=== PATIENT | female | born 2000 | race Caucasian/White ===

== ENCOUNTER 2022-03-21 18:13 | Emergency (ER) | payer SELFPAY ==
--- OUTSIDE RECORDS SUMMARY | 2022-03-21 18:15 | XMS REPORT | Continuity of Care Document ---
:2000 Author Organization [facility] t Address [address] [place] [address] Care Team Providers Name Role Phone IRVING Attending Clinician Unavailable IRVING Admitting Clinician Unavailable Payers Payer Name Policy Type Policy Number Effective Date Expiration Date [facility] [id number] 2018 COMMUNITY PLAN OF 00:00:00 [place] (MED[place] [id number] (MEDICAID) Problems This patient has no known problems. Allergies, Adverse Reactions, Alerts This patient has no known allergies or adverse reactions. Medications This patient has no known medications. Procedures This patient has no known procedures. Encounters Start End Encounter Admission Attending Care Care Encounter Source Date/Time Date/Time Type Type Clinicians Facility Department ID 2021-12-08 2021-12-08 Outpatient [facility] [id number] [place] 03:56:00 03:56:00 _SHERIN da [facility] Program Results This patient has no known results.
[2022-03-21] MEDS ORDERED: NA CHLORIDE 0.9% 1,000 ML ONE (19:17)
[2022-03-21 19:30] LABS: Urine Blood Negative (Negative); Urine Glucose Negative (Negative); Urine Protein Negative (Negative); Urine Specific Gravity 1.025 (1.005-1.030)
[2022-03-21 19:31] LABS: Absolute Lymphocytes (CBC) 2.5 K/uL (0.7-4.9); Hematocrit 39.4 % (36.0-45.0); Lymphocytes % 26.7 % (15.3-44.8); MCV 90.3 fL (80-100); MPV 8.8 fL (7.6-11.3); RBC Red Blood Cell Count 4.36 M/uL (3.86-4.86)
[2022-03-21 19:50] LABS: BUN Blood Urea Nitrogen 8 mg/dL (7-18); Bicarbonate 29 mmol/L (21-32); Glomerular Filtration Rate 107 ml/min (=/>90); Glucose Level 84 mg/dL (74-106); Potassium 3.7 mmol/L (3.5-5.1); Sodium Level 140 mmol/L (136-145)
[2022-03-21 19:51] LABS: Troponin High Sensitivity < 3.0 pg/mL (<58.9)
[2022-03-22 02:59] VITALS: TEMP 98.2
[2022-03-22 03:03] VITALS: BP 103/72; O2SAT 100
--- NOTE | 2022-03-22 07:21 | EKG ---
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
[2022-03-22 09:10] LABS: Urine Specific Gravity/Preg 1.025 (1.005-1.030)
--- NOTE | 2022-03-22 10:29 | ER ---
Nurse's Notes [facility] Name: Lin Everett Age: 21 yrs Sex: Female : 2000 Arrival Date: 03/21/2022 Time: 18:14 Bed 8 Private MD: Diagnosis: Benign paroxysmal vertigo Presentation: 03/21 18:38 Chief complaint: Patient states: dizziness, low BP for the past few weeks. Coronavirus eh3 screen: Vaccine status: Patient reports being unvaccinated. Ebola Screen: No symptoms or risks identified at this time. Initial Sepsis Screen: Does the patient meet any 2 criteria? No. Patient's initial sepsis screen is negative. Does the patient have a suspected source of infection? No. Patient's initial sepsis screen is negative. Risk Assessment: Do you want to hurt yourself or someone else? Patient reports no desire to harm self or others. Onset of symptoms was March 21, 2022. 18:38 Method Of Arrival: Ambulatory 3 18:38 Acuity: ARTURO 3 eh3 Triage Assessment: 18:38 General: Appears in no apparent distress. comfortable, Behavior is calm, cooperative, eh3 appropriate for age. Pain: Denies pain. Neuro: Level of Consciousness is awake, alert, obeys commands, Oriented to person, place, time, situation. Cardiovascular: Capillary refill < 3 seconds Patient's skin is warm and dry. Respiratory: Airway is patent Respiratory effort is even, unlabored. 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 - Social history:: Smoking status: Patient reports the use of cigarette tobacco products, smokes one-half pack cigarettes per day, Patient uses alcohol, occasionally. street drugs, marijuana. Screenin:55 Abuse screen: Denies threats or abuse. Nutritional screening: No deficits noted. tw2 Tuberculosis screening: No symptoms or risk factors identified. Fall Risk None identified. Assessment: 18:57 Reassessment: provider at bedside at this time. tw2 19:21 General: Appears uncomfortable, Behavior is calm, cooperative. Pain: Complains of pain ll3 in chest Quality of pain is described as pressure. Neuro: Level of Consciousness is awake, alert, obeys commands, Oriented to person, place, time, situation, Reports dizziness. Cardiovascular: Reports Chest pressure Patient's skin is warm and dry. Respiratory: Respiratory effort is even, unlabored, Respiratory pattern is regular, symmetrical. 20:28 Reassessment: No changes from previously documented assessment. Patient and/or family ll3 updated on plan of care and expected duration. Pain level reassessed. Patient is alert, oriented x 3, equal unlabored respirations, skin warm/dry/pink. Vital Signs: 18:38 BP 131 / 91 RA Sitting (auto/reg); Pulse 80; Resp 18; Temp 98.2; Pulse Ox 96% on R/A; eh3 Weight 49.44 kg; Height 4 ft. 9 in. (144.78 cm); Pain 0/10; 20:28 BP 103 / 72; Pulse 56; Resp 17; Pulse Ox 100% on R/A; ll3 18:38 Body Mass Index 23.59 (49.44 kg, 144.78 cm) eh3 ED Course: 18:14 Patient arrived in ED. mr 18:23 [facility] jl9 18:23 Marcelo Salas MD is Attending Physician. jl9 18:41 Triage completed. eh3 18:42 Arm band placed on left wrist. eh3 18:45 Bed in low position. Call light in reach. tw2 18:56 Michel Gunn, RN is Primary Nurse. bp 19:18 EKG done, by ED staff. wm 19:19 Initial lab(s) drawn, by hi, sent to lab. ll3 19:19 Inserted saline lock: 22 gauge in right antecubital area, using aseptic technique. ll3 Blood collected. 19:22 Primary Nurse role handed off by Michel Gunn RN mw2 19:30 Sinan Fulton, CASSANDRA is Primary Nurse. ll3 20:24 Attending Physician role handed off by Marcelo Salas MD rn 20:24 Chavez Carter MD is Attending Physician. rn 20:45 No provider procedures requiring assistance completed. IV discontinued, intact, ll3 bleeding controlled, No redness/swelling at site. Pressure dressing applied. Administered Medications: 19:25 Drug: NS 0.9% 1000 ml Route: IV; Rate: 1000 ml; Site: right antecubital; ll3 20:28 Follow up: Response: No adverse reaction; IV Status: Completed infusion; IV Intake: ll3 1000ml Medication: 18:55 VIS not applicable for this client. tw2 Intake: 20:28 IV: 1000ml; Total: 1000ml. ll3 Outcome: 20:34 Discharge ordered by . [email or web address] 20:45 Discharged to home ambulatory, with significant other. ll3 20:45 Condition: stable 20:45 Discharge instructions given to patient, Instructed on discharge instructions, follow up and referral plans. medication usage, Demonstrated understanding of instructions, follow-up care, medications, Prescriptions given X 1. 20:46 Patient left the ED. ll3 Signatures: Kristan Sow Roman, MD MD rn Wise, Tara RN RN tw2 Michel Gunn, RN RN Narinder Clark 2 Vale Birmingham Lynsea, RN RN 3 Maci Zepeda John [facility]
--- NOTE | 2022-03-22 10:30 | EDPHYS ---
Physician Documentation [facility] Name: Lin Everett Age: 21 yrs Sex: Female : 2000 Arrival Date: 03/21/2022 Time: 18:14 Bed 8 Private MD: ED Physician Chavez Carter HPI: 03/21 20:31 This 21 yrs old Female presents to ER via Ambulatory with complaints of intermittent jl9 dizziness x1 month, history of vertigo. Denies any current symptoms. . 20:31 Onset: The symptoms/episode began/occurred 1 month(s) ago. Associated signs and jl9 symptoms: Pertinent negatives: headache, seizure. 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 - Social history:: Smoking status: Patient reports the use of cigarette tobacco products, smokes one-half pack cigarettes per day, Patient uses alcohol, occasionally. street drugs, marijuana. ROS: 20:32 Constitutional: Negative for fever, chills, and weight loss. jl9 20:32 Eyes: Negative for injury, pain, redness, and discharge, ENT: Negative for injury, pain, and discharge, Neck: Negative for injury, pain, and swelling, Cardiovascular: Negative for chest pain, palpitations, and edema, Respiratory: Negative for shortness of breath, cough, wheezing, and pleuritic chest pain, Abdomen/GI: Negative for abdominal pain, nausea, vomiting, diarrhea, and constipation, Back: Negative for injury and pain, MS/Extremity: Negative for injury and deformity, Skin: Negative for injury, rash, and discoloration. 20:32 Psych: Negative for depression, anxiety, suicide ideation, homicidal ideation, and hallucinations, Allergy/Immunology: Negative for hives, rash, and allergies, Endocrine: Negative for neck swelling, polydipsia, polyuria, polyphagia, and marked weight changes, Hematologic/Lymphatic: Negative for swollen nodes, abnormal bleeding, and unusual bruising. 20:32 Neuro: Positive for dizziness. Exam: 20:33 Constitutional: This is a well developed, well nourished patient who is awake, alert, jl9 and in no acute distress. Head/Face: Normocephalic, atraumatic. Eyes: Pupils equal round and reactive to light, extra-ocular motions intact. Lids and lashes normal. Conjunctiva and sclera are non-icteric and not injected. Cornea within normal limits. Periorbital areas with no swelling, redness, or edema. ENT: Mucous membranes moist. Neck: Trachea midline, no thyromegaly or masses palpated, and no cervical lymphadenopathy. Supple, full range of motion without nuchal rigidity, or vertebral point tenderness. No Meningismus. Chest/axilla: Normal chest wall appearance and motion. Nontender with no deformity. No lesions are appreciated. Cardiovascular: Regular rate and rhythm with a normal S1 and S2. No gallops, murmurs, or rubs. Normal PMI, no JVD. No pulse deficits. Respiratory: Lungs have equal breath sounds bilaterally, clear to auscultation and percussion. No rales, rhonchi or wheezes noted. No increased work of breathing, no retractions or nasal flaring. Abdomen/GI: Soft, non-tender, with normal bowel sounds. No distension or tympany. No guarding or rebound. No evidence of tenderness throughout. Back: No spinal tenderness. No costovertebral tenderness. Full range of motion. Skin: Warm, dry with normal turgor. Normal color with no rashes, no lesions, and no evidence of cellulitis. MS/ Extremity: Pulses equal, no cyanosis. Neurovascular intact. Full, normal range of motion. Neuro: Awake and alert, GCS 15, oriented to person, place, time, and situation. Cranial nerves II-XII grossly intact. Motor strength 5/5 in all extremities. Sensory grossly intact. Cerebellar exam normal. Normal gait. Psych: Awake, alert, with orientation to person, place and time. Behavior, mood, and affect are within normal limits. Vital Signs: 18:38 BP 131 / 91 RA Sitting (auto/reg); Pulse 80; Resp 18; Temp 98.2; Pulse Ox 96% on R/A; eh3 Weight 49.44 kg; Height 4 ft. 9 in. (144.78 cm); Pain 0/10; 20:28 BP 103 / 72; Pulse 56; Resp 17; Pulse Ox 100% on R/A; ll3 18:38 Body Mass Index 23.59 (49.44 kg, 144.78 cm) eh3 MDM: 18:52 Patient medically screened. 9 20:35 Data reviewed: vital signs, nurses notes. [facility] 03/21 19:28 Order name: Basic Metabolic Panel; Complete Time: 20:30 EDMS 03/21 19:28 Order name: Troponin High Sensitivity; Complete Time: 20:30 EDMS 03/21 19:28 Order name: CBC with Automated Diff; Complete Time: 20:30 EDMS 03/21 19:03 Order name: EKG; Complete Time: 08:33 [facility] 03/21 19:03 Order name: EKG - Nurse/Tech; Complete Time: 19:18 [facility] 03/21 19:03 Order name: IV Saline Lock; Complete Time: 19:21 [facility] 03/21 19:03 Order name: Labs collected and sent; Complete Time: 19:21 [facility] 03/21 19:03 Order name: Urine Dipstick-Ancillary (obtain specimen); Complete Time: 19:30 [facility] 03/21 19:30 Order name: Urine --Ancillary (enter results) [facility] 03/21 19:30 Order name: Urine Dipstick-Ancillary; Complete Time: 20:30 EDMS 03/21 19:03 Order name: Urine Test (obtain specimen); Complete Time: 19:30 jl9 Administered Medications: 19:25 Drug: NS 0.9% 1000 ml Route: IV; Rate: 1000 ml; Site: right antecubital; ll3 20:28 Follow up: Response: No adverse reaction; IV Status: Completed infusion; IV Intake: ll3 1000ml Disposition: 22:52 Co-signature as Attending Physician, Chavez Carter MD. rn Disposition Summary: 03/21/22 20:34 Discharge Ordered Location: Home jl9 Condition: Stable jl9 Diagnosis - Benign paroxysmal vertigo jl9 Followup: jl9 - With: Private Physician - When: 1 - 2 days - Reason: Recheck today's complaints, Continuance of care, Re-evaluation by your physician Discharge Instructions: - Discharge Summary Sheet jl9 - Vertigo, [id number] jl9 Forms: - Medication Reconciliation Form jl9 - Thank You Letter jl9 - Antibiotic Education jl9 - Prescription Opioid Use jl9 Prescriptions: - Meclizine 25 mg Oral Tablet - take 1 tablet by ORAL route every 8 hours As needed; 30 tablet; Refills: 0, jl9 Product Selection Permitted Signatures: Dispatcher [employer] Chavez Graham MD MD rn Loubet, CASSANDRA Menon RN ll3 Zepeda, Maci 3 Oswald Beckwith jl9
== END 2022-03-21 20:46 | disposition home or self-care (01) ==
LOC: ER 18:13
DX: H81.10 Benign paroxysmal vertigo, unspecified ear (principal); F17.210 Nicotine dependence, cigarettes, uncomplicated; Z88.8 Allergy status to other drugs, medicaments and biological substances
CPT/HCPCS: 36415; 80048; 81003; 81025; 84484; 85025; 93005; 96360; 99284; J7030

== ENCOUNTER 2022-07-07 13:13 | Emergency (ER) | payer SELFPAY ==
--- OUTSIDE RECORDS SUMMARY | 2022-07-07 13:16 | XMS REPORT | Continuity of Care Document ---
:2000 Author Organization [facility] t Address [address] [place] [address] Care Team Providers Name Role Phone IRVING Attending Clinician Unavailable IRVING Admitting Clinician Unavailable Payers Payer Name Policy Type Policy Number Effective Date Expiration Date [facility] [id number] 2018 COMMUNITY PLAN OF 00:00:00 [place] [id number] [place]MEDICA[place] Problems This patient has no known problems. Allergies, Adverse Reactions, Alerts This patient has no known allergies or adverse reactions. Medications This patient has no known medications. Procedures This patient has no known procedures. Encounters Start End Encounter Admission Attending Care Care Encounter Source Date/Time Date/Time Type Type Clinicians Facility Department ID 2021-12-08 2021-12-08 Outpatient CATHY [facility] [phone] [place] 03:56:00 03:56:00 _SHERIN da [facility] h Program Results This patient has no known results.
[2022-07-07 14:56] LABS: SARS-COV-2 RT PCR NEGATIVE (NEGATIVE)
--- NOTE | 2022-07-07 15:29 | EDPHYS ---
Physician Documentation [facility] Name: Lin Everett Age: 21 yrs Sex: Female : 2000 Arrival Date: 07/07/2022 Time: 13:14 Bed DIS2 Private MD: ED Physician Marcelo Salas HPI: 07/07 15:25 This 21 yrs old Female presents to ER via Ambulatory with complaints of jl9 Cough, Chest Congestion, Sore Throat. 15:25 The patient or guardian reports flu symptoms. Onset: The symptoms/episode jl9 began/occurred 1 week(s) ago. Modifying factors: The symptoms are alleviated by nothing, the symptoms are aggravated by nothing. 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 - Social history:: Smoking status: Patient reports the use of cigarette tobacco products, smokes one-half pack cigarettes per day, Patient uses street drugs, marijuana. ROS: 15:26 Constitutional: Negative for fever, chills, and weight loss, Eyes: Negative for injury, jl9 pain, redness, and discharge. 15:26 Neck: Negative for injury, pain, and swelling, Cardiovascular: Negative for chest pain, palpitations, and edema. 15:26 Abdomen/GI: Negative for abdominal pain, nausea, vomiting, diarrhea, and constipation, Back: Negative for injury and pain, : Negative for injury, bleeding, discharge, and swelling, MS/Extremity: Negative for injury and deformity, Skin: Negative for injury, rash, and discoloration, Neuro: Negative for headache, weakness, numbness, tingling, and seizure, Psych: Negative for depression, anxiety, suicide ideation, homicidal ideation, and hallucinations, Allergy/Immunology: Negative for hives, rash, and allergies, Endocrine: Negative for neck swelling, polydipsia, polyuria, polyphagia, and marked weight changes, Hematologic/Lymphatic: Negative for swollen nodes, abnormal bleeding, and unusual bruising. 15:26 ENT: Positive for sore throat. 15:26 Respiratory: Positive for cough. Exam: 15:28 Constitutional: This is a well developed, well nourished patient who is awake, alert, jl9 and in no acute distress. Head/Face: Normocephalic, atraumatic. Eyes: Pupils equal round and reactive to light, extra-ocular motions intact. Lids and lashes normal. Conjunctiva and sclera are non-icteric and not injected. Cornea within normal limits. Periorbital areas with no swelling, redness, or edema. ENT: Mucous membranes moist. Neck: Trachea midline, no thyromegaly or masses palpated, and no cervical lymphadenopathy. Supple, full range of motion without nuchal rigidity, or vertebral point tenderness. No Meningismus. Chest/axilla: Normal chest wall appearance and motion. Nontender with no deformity. No lesions are appreciated. Cardiovascular: Regular rate and rhythm with a normal S1 and S2. No gallops, murmurs, or rubs. Normal PMI, no JVD. No pulse deficits. 15:28 Abdomen/GI: Soft, non-tender, with normal bowel sounds. No distension or tympany. No guarding or rebound. No evidence of tenderness throughout. Back: No spinal tenderness. No costovertebral tenderness. Full range of motion. Skin: Warm, dry with normal turgor. Normal color with no rashes, no lesions, and no evidence of cellulitis. MS/ Extremity: Pulses equal, no cyanosis. Neurovascular intact. Full, normal range of motion. Neuro: Awake and alert, GCS 15, oriented to person, place, time, and situation. Cranial nerves II-XII grossly intact. Motor strength 5/5 in all extremities. Sensory grossly intact. Cerebellar exam normal. Normal gait. Psych: Awake, alert, with orientation to person, place and time. Behavior, mood, and affect are within normal limits. 15:28 Respiratory: the patient does not display signs of respiratory distress, Respirations: normal, Breath sounds: + upper airway congestion. Vital Signs: 14:01 BP 114 / 82; Pulse 68; Resp 16; Temp 98.4; Pulse Ox 100% ; Weight 48.53 kg; Height 4 vg1 ft. 11 in. (149.86 cm); Pain 5/10; 14:01 Body Mass Index 21.61 (48.53 kg, 149.86 cm) vg1 MDM: 14:10 Patient medically screened. [facility] 15:29 Differential Diagnosis: Obstructed Airway Bronchitis Upper Respiratory Infection. Data jl9 reviewed: vital signs, nurses notes. Counseling: I had a detailed discussion with the patient and/or guardian regarding: the historical points, exam findings, and any diagnostic results supporting the discharge/admit diagnosis, lab results, the need for outpatient follow up, to return to the emergency department if symptoms worsen or persist or if there are any questions or concerns that arise at home. 07/07 13:15 Order name: COVID-19/FLU A+B/RSV; Complete Time: 15:06 jl9 07/07 14:00 Order name: Strep; Complete Time: 15:06 vg1 07/07 15:08 Order name: Throat Culture EDMS Administered Medications: No medications were administered Disposition Summary: 07/07/22 15:29 Discharge Ordered Location: Home jl9 Condition: Stable jl9 Diagnosis - Acute upper respiratory infection, unspecified jl9 Followup: jl9 - With: Private Physician - When: 1 - 2 days - Reason: Recheck today's complaints, Continuance of care, Re-evaluation by your physician Discharge Instructions: - Discharge Summary Sheet jl9 - Upper Respiratory Infection, Adult jl9 - Acute Bronchitis, Adult, [id number] jl9 Forms: - Medication Reconciliation Form jl9 - Thank You Letter jl9 - Antibiotic Education jl9 - Prescription Opioid Use jl9 - Work release form ap3 Prescriptions: - albuterol sulfate 90 mcg/actuation Inhalation HFA aerosol inhaler - inhale 2 puff by INHALATION route every 6 hours As needed; 18 gram; Refills: 0, jl9 Product Selection Permitted - azithromycin 250 mg Oral tablet - take 2 tablet by ORAL route once daily for 1 day then 1 tablet (250 mg) by oral jl9 route once daily for 4 days; 6 tablet; Refills: 0, Product Selection Permitted - Medrol (Elías) 4 mg Oral Tablets, Dose Pack - take 1 tablet by ORAL route as directed - follow package instructions; 1 jl9 packet; Refills: 0, Product Selection Permitted - Guaifenesin AC 10-100 mg/5 mL Oral Liquid - take 10 milliliters by ORAL route every 4 hours As needed; 240 milliliter; jl9 Refills: 0, Product Selection Permitted Addendum: 07/09/2022 13:35 Co-signature as Attending Physician, Marcelo Josue MD I agree with the assessment and c gentile plan of care. Signatures: Dispatcher [employer] Marcelo Lock MD MD cha Garcia, Victoria, RN RN 1 Oswald Beckwith jl9
--- NOTE | 2022-07-07 15:29 | ER ---
Nurse's Notes [facility] Name: Lin Everett Age: 21 yrs Sex: Female : 2000 Arrival Date: 07/07/2022 Time: 13:14 Bed DIS2 Private MD: Diagnosis: Acute upper respiratory infection, unspecified Presentation: 07/07 14:01 Chief complaint: Patient states: cough, congestion, sore throat x 1 week. Coronavirus vg1 screen: Vaccine status: Patient reports being unvaccinated. Client denies travel out of the [place] in the last 14 days. Ebola Screen: Patient negative for fever greater than or equal to 101.5 degrees Fahrenheit, and additional compatible Ebola Virus Disease symptoms. Initial Sepsis Screen: Does the patient meet any 2 criteria? No. Patient's initial sepsis screen is negative. Does the patient have a suspected source of infection? No. Patient's initial sepsis screen is negative. Risk Assessment: Do you want to hurt yourself or someone else? Patient reports no desire to harm self or others. Onset of symptoms was June 30, 2022. 14:01 [facility] 14:01 Acuity: ARTURO 4 vg1 Triage Assessment: 14:03 General: Appears uncomfortable, Behavior is calm, anxious. Pain: Complains of pain in vg1 throat Pain currently is 5 out of 10 on a pain scale. EENT: Throat is reddened. Respiratory: Reports cough that is productive, Airway is patent Respiratory effort is even, unlabored. GI: Patient currently denies diarrhea, nausea, vomiting. OCCUPATIONAL THERAPY ASST: 14:03 [facility] 07/04/2022 1 Historical: - Allergies: 14:03 Lamictal; vg1 - PMHx: 14:03 Anxiety; Bipolar disorder; depressive disorder; PTSD; Vertigo; vg1 - PSHx: 14:03 None; vg1 - Immunization history:: Client reports having NOT received the Covid vaccine. - Social history:: Smoking status: Patient reports the use of cigarette tobacco products, smokes one-half pack cigarettes per day, Patient uses street drugs, marijuana. Screenin:47 Abuse screen: Denies threats or abuse. Denies injuries from another. Nutritional ss screening: No deficits noted. Tuberculosis screening: Never had TB. Fall Risk None identified. Assessment: 15:47 General: Appears in no apparent distress. comfortable, Behavior is calm, cooperative. ss Respiratory: Airway is patent Respiratory effort is even, unlabored, Respiratory pattern is regular, symmetrical. Derm: Skin is intact, is healthy with good turgor, Skin is pink, warm \T\ dry. normal. Musculoskeletal: Circulation, motion, and sensation intact. Range of motion: intact in all extremities, Swelling absent. Vital Signs: 14:01 BP 114 / 82; Pulse 68; Resp 16; Temp 98.4; Pulse Ox 100% ; Weight 48.53 kg; Height 4 vg1 ft. 11 in. (149.86 cm); Pain 5/10; 14:01 Body Mass Index 21.61 (48.53 kg, 149.86 cm) 1 ED Course: 13:14 Patient arrived in ED. 13:15 Oswald Beckwith is PHCP. jl9 13:15 Marcelo Salas MD is Attending Physician. 9 14:03 Triage completed. 1 14:03 Arm band placed on. 1 14:11 Strep Sent. 14:11 COVID-19/FLU A+B/RSV Sent. 15:47 Charlene Thomas, RN is Primary Nurse. ss 15:47 Patient has correct armband on for positive identification. ss 15:47 No provider procedures requiring assistance completed. Patient did not have IV access ss during this emergency room visit. Administered Medications: No medications were administered Medication: 15:47 VIS not applicable for this client. ss Outcome: 15:29 Discharge ordered by . jl9 15:47 Discharged to home ambulatory. ss 15:47 Condition: good 15:47 Discharge instructions given to patient, family, Instructed on discharge instructions, follow up and referral plans. medication usage, Demonstrated understanding of instructions, follow-up care, medications, Prescriptions given X 4. 15:49 Patient left the ED. ss Signatures: Juanjose Kristan rahman Charlene Thomas, RN RN Lexus Bonilla RN RN [facility] Kelli CruzOswald Vann jl9
[2022-07-07 15:55] VITALS: BP 114/82; TEMP 98.4; O2SAT 100
== END 2022-07-07 15:49 | disposition home or self-care (01) ==
LOC: ER 13:13
DX: J06.9 Acute upper respiratory infection, unspecified (principal); Z20.822 Contact with and (suspected) exposure to COVID-19
CPT/HCPCS: 0241U; 87070; 87081; 99283

== ENCOUNTER 2022-09-14 11:39 | Emergency (ER) | payer OTHER, SELFPAY ==
--- OUTSIDE RECORDS SUMMARY | 2022-09-14 11:42 | XMS REPORT | Continuity of Care Document ---
:2000 Author Organization [facility] t Address [address] [place] [address] Care Team Providers Name Role Phone PCP, PATIENT DOES NOT HAVE A Primary Care Physician Unavaila ble AMADO ESOCBEDO Attending Clinician Unavailable AMADO ESCOBEDO Attending Clinician Unavailable Lab, Ang - Db Attending Clinician Unavailable Doctor Unassigned, [place] Attending Clinician Unavailable IRVING Attending Clinician Unavailable IRVING Admitting Clinician Unavailable Payers Payer Name Policy Type Policy Number Effective Date Expiration Date S chantelle [facility] [id number] 2022 00:00:00 [facility] [id number] 2018 COMMUNITY PLAN [place] 00:[place]00 [place] [id number] [place] Problems Condition Condition Condition Status Onset Resolution Last Treating Co mments Source Name Details Category Date Date Treatment Clinician Date History of History of Disease Active U nivers schizophre schizophre 1-18 it y of deisi deisi 00:00: [place] 00 Medical Branch Mixed Mixed Disease Active Univers anxiety anxiety 1-18 ity of and and 00:00: [place] depressive depressive 00 Me dical disorder disorder Branch Normal Normal Disease Active Univers first first 1-18 [place] Medica l trimester trimester Bran ch Tetrahydro Tetrahydro Disease Active U nivers cannabinol cannabinol 1-18 it y of (THC) use (THC[place] disorder, disorder, 00 Med[place] michael mild, mild, Branch abuse abuse Family Family Disease Active Univers history of history of 1-18 it y of Graves' Graves' 00:00: [place] disease disease 00 Medical Branch Morbillifo Morbillifo Disease Active U nivers rm rash rm rash 2-12 ity of 00:00: [place] [id number] Medical [place] Hand pain, Hand pain, Disease Active U nivers left left 4-13 ity of 00:00: [place] Allergies, Adverse Reactions, Alerts Allergy Allergy Status Severity Reaction(s) Onset Inactive Treating Comm ents Source Name Type Date Date Clinician LAMOTRIG DRUG Active Unknown-Cmnt Un cosme INE INGREDI 1-18 ity of 00:00: [address] Lamotrig Propensi Active Unknown - Uni vers ine ty to See comments 1-18 ity of adverse 00:00: [place] reaction 00 Medical s [place] NO KNOWN Drug Active Univers ALLERGIE Class ity of S [facility] Social History Social Habit Start Date Stop Date Quantity Comments Source ASSERTION 2022-06-22 [facility] 00:00:00 [facility] History of Cigarette Smoker Universi ty of tobacco use [facility] Exposure to 2022-09-02 2022-09-12 Not sure [facility] SARS-CoV-2 00:00:00 08:05:00 [facility] (event) [place] Tobacco use and 2022-09-06 2022-09-06 Smokeless tobacco Un iversity of exposure 00:00:00 00:00:00 non-user [facility] Alcohol intake 2022-09-06 2022-09-06 Ex-drinker [facility] 00:00:00 00:00:00 (finding) [facility] Sex Assigned At [birth year] Universit y of 00:00:00 00:00:00 [facility] Smoking Status Start Date Stop Date Source Smokes tobacco daily 2022-09-06 00:00:00 [facility] Medications Ordered Filled Start Stop Current Ordering Indication Dosage Frequency Signature Comments Components Source Medication Medication Date Date Medication? Clinician (SIG) Name Name QUEtiapine Yes 50mg Take 50 mg U nivers 50 mg 1-18 by mouth ity of tablet 13:44: at [place] 40 bedtime. Medical Branch QUEtiapine Yes 50mg Take 50 mg U nivers 50 mg 1-18 by mouth ity of tablet 13:44: at [place] 40 bedtime. Medical Branch QUEtiapine Yes 50mg Take 50 mg U nivers 50 mg 2-13 by mouth ity of tablet 14:37: at [place] 04 bedtime. Medical Branch methylPREDN Yes [id number] Take by [facility] ISolone 4 2-13 mouth ity of mg tablets 00:00: [place]INSTRU [place] 00 CTIONS. Medical follow Branch package directions methylPREDN Yes [id number] Take by [facility] ISolone 4 2-13 mouth ity of mg tablets 00:00: SEE-INSTRU [place] 00 CTIONS. Medical follow Branch package directions methylPREDN Yes [id number] Take by [facility] ISolone 4 2-13 mouth ity of mg tablets 00:00: [place]-INSTRU [place] 00 CTIONS. Medical follow Branch package directions ibuprofen Yes 800mg Take 1 Unive rs 800 mg 4-27 tablet by ity of tablet 00:00: mouth [place] 00 every 8 Medical (eight) Branch hours. ibuprofen No 800mg Take 1 Univ ers 800 mg 4-27 -18 tablet by ity of tablet 00:00: 00:00 mouth [place] 00 :00 every 8 Medical (eight) Branch hours. Vital Signs Vital Name Observation Time Observation Value Comments Source Systolic blood 2022-09-06 19:50:00 102 mm[Hg] Univer sity of pressure [facility] Diastolic blood 2022-09-06 19:50:00 66 mm[Hg] Unive rsity of pressure [facility] Heart rate 2022-09-06 19:50:00 71 /min [facility] Body temperature 2022-09-06 19:50:00 37 Ebony [facility] Respiratory rate 2022-09-06 19:50:00 16 /min [facility] Body height 2022-09-06 19:50:[address] [facility] Body weight 2022-09-06 19:50:[address] [facility] BMI 2022-09-06 19:50:00 21.35 kg/m2 [facility] Oxygen saturation in 2022-09-06 19:50:00 98 /min [facility] Arterial blood by [facility] Pulse oximetry [place] Procedures Procedure Date / Time Performed Performing Clinician [facility] e ASSIGNMENT OF BENEFITS 2022-09-06 19:26:42 Doctor Unassigned, No [facility] POCT TEST 2022-09-06 00:00:00 Amado Escobedo [facility] Encounters Start End Encounter Admission Attending Care Care Encounter Source Date/Time Date/Time Type Type Clinicians Facility Department ID 2022-10-04 2022-10-04 Outpatient R AMADO ESCOBEDO [facility] B [id number] Univers 13:30:00 13:30:00 AMADO ESCOBEDO [facility] 2022-09-15 2022-09-15 Outpatient R AMADO ESCOBEDO [facility] B [id number] Univers 00:00:00 00:00:00 AMADO ESCOBEDO frances [facility] 2022-09-12 2022-09-12 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 Lab, Ang - Db [facility] [id number] Univers 08:30:00 08:45:00 Visit Amado Escobedo [facility] [id number] ity [facility] [id number] Jose as LIZZIE?BLEA [phone] [address] MEDICAL OFFICE BUILDING 2022-09-12 2022-09-12 Outpatient R AMADO ESCOBEDO [facility] [place] B [id number] Univers 08:30:00 08:30:00 AMADO ESCOBEDO frances [facility] 2022-09-06 2022-09-06 Initial Fred WABARBI JOHNSON [id number] Univers 13:45:00 14:27:11 Amado LINDSEY [id number] i ty of Visit [place] [id number] [place] [id number] [facility] 134 Branch 2022-09-06 2022-09-06 Outpatient R GAYLE ESCOBEDORUDOLPH [facility] B [id number] Univers 13:45:00 14:27:11 AUGUSTAAMADO MORGAN [facility] 2022-09-06 2022-09-06 Orders Doctor ERASTO [id number] Univers 00:00:00 00:00:00 Only Unassigned, ALVA [id number] ity of [place] [facility] [id number] Jose as [id number] [place] [address] Branch 2022-08-08 2022-08-08 Outpatient R AUGUSTALOGANANNAGAYLE BARTLETTRUDOLPH [facility] B [id number] Univers 10:30:00 10:30:00 [facility] 2021-12-08 2021-12-08 Outpatient RAMON_BALDO NJJO [facility] [id number] [place] 03:56:00 03:56:00 [facility] Results Test Description Test Time Test Comments Results Result Comments Source POCT TEST 2022-09-06 19:55:00 Test Item Value Reference Range Interpretation Comme nts POCT PREG (test code = 1605) Positive On board controls acceptable with C Line (test code = 3574) Yes POCT PREG LOT # (test code = 3575) POCT PREG TEST DATE (test code = 3576) [facility]
[2022-09-14 12:17] LABS: Urine Blood Trace-lysed (Negative); Urine Glucose Negative (Negative); Urine Protein 2+ (Negative); Urine Specific Gravity >=1.030 (1.005-1.030)
[2022-09-14 12:30] LABS: Urine Bacteria >50 /HPF (<20); Urine Mucus Slight /HPF (None Seen); Urine RBC None Seen /HPF (None Seen)
[2022-09-14] MEDS ORDERED: ONDANSETRON 4 MG/2 ML VIAL ONE (12:38)
[2022-09-14] MEDS ORDERED: NA CHLORIDE 0.9% 1,000 ML ONE (12:38)
[2022-09-14] MEDS ORDERED: FAMOTIDINE 20 MG/2 ML VIAL IV ONE (12:39)
[2022-09-14 12:40] LABS: Absolute Lymphocytes (CBC) 1.5 K/uL (0.7-4.9); Lymphocytes % 13.9 % (15.3-44.8); MCV 92.2 fL (80-100); RBC Red Blood Cell Count 4.45 M/uL (3.86-4.86)
[2022-09-14 12:57] LABS: Potassium 3.6 mmol/L (3.5-5.1)
[2022-09-14 13:05] LABS: Urine Specific Gravity/Preg >1.030 (1.005-1.030)
--- NOTE | 2022-09-14 13:43 | RAD REPORT ---
EXAM DESCRIPTION: US - 1St Trimest Single 1St Fetus - 09/14/2022 1:20 pm CLINICAL HISTORY: with abdominal pain COMPARISON: None FINDINGS: The uterus measures 9 x 8 x 8 centimeters. Within the endometrium is a gestational sac. Wi thin this is a pole with a crown-rump length 4.5 centimeters. Cardiac activity 168 beats per mi nute. A yolk sac is seen. Posterior placenta The right and left ovary is normal in size and echotexture. Right and left adnexa unremarkable No significant free fluid IMPRESSION: Single live intrauterine with an estimated gestational age 11 weeks 2 days ANSON 04/03/2023 If a survey is desired it should be performed in approximately 7 weeks
--- NOTE | 2022-09-14 14:11 | ER ---
Nurse's Notes [facility] Name: Lin Everett Age: 21 yrs Sex: Female : 2000 Arrival Date: 09/14/2022 Time: 11:46 Bed 18 Private MD: Diagnosis: Other specified related conditions, first trimester;Nausea with vomiting, unspecified;UTI/ Urinary tract infection, site not specified Presentation: 09/14 11:49 Chief complaint: Patient states: vomiting since yesterday, reports 7 vomiting episodes aa5 yesterday and 6 times today. Report being 11 weeks . Coronavirus screen: vomiting. Ebola Screen: Patient denies travel to an Ebola-affected area in the 21 days before illness onset. Initial Sepsis Screen: Does the patient meet any 2 criteria? HR > 90 bpm. Does the patient have a suspected source of infection? No. Patient's initial sepsis screen is negative. Risk Assessment: Do you want to hurt yourself or someone else? Patient reports no desire to harm self or others. Onset of symptoms was August 2022. 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 - Social history:: Smoking status: Patient reports the use of cigarette tobacco products, smokes one-half pack cigarettes per day. Screenin:00 [facility] ED Fall Risk Assessment (Adult) History of falling in the last 3 months, eh3 including since admission No falls in past 3 months (0 pts) Confusion or Disorientation No (0 pts) Intoxicated or Sedated No (0 pts) Impaired Gait No (0 pts) Mobility Assist Device Used No (0 pt) Altered Elimination Yes (1 pt) Score/Fall Risk Level 0 - 2 = Low Risk. Abuse screen: Denies threats or abuse. Denies injuries from another. Nutritional screening: Has had N/V for 3 or more days. Tuberculosis screening: No symptoms or risk factors identified. Assessment: 12:00 General: Appears in no apparent distress. uncomfortable, Behavior is calm, cooperative, eh3 appropriate for age. Pain: Complains of pain in left lower quadrant and right lower quadrant and epigastric area. Neuro: Level of Consciousness is awake, alert, obeys commands, Oriented to person, place, time, situation. Cardiovascular: Capillary refill < 3 seconds Patient's skin is warm and dry. Respiratory: Airway is patent Respiratory effort is even, unlabored, Respiratory pattern is regular, symmetrical. GI: Abdomen is round non-distended, Reports lower abdominal pain, upper abdominal pain, intolerance of fluids, intolerance of food, nausea, vomiting. EENT: No signs and/or symptoms were reported regarding the EENT system. Derm: No signs and/or symptoms reported regarding the dermatologic system. Skin is pink, warm \T\ dry. Musculoskeletal: No signs and/or symptoms reported regarding the musculoskeletal system. Circulation, motion, and sensation intact. Range of motion: intact in all extremities. 13:00 Reassessment: Patient appears in no apparent distress at this time. Patient and/or eh3 family updated on plan of care and expected duration. Pain level reassessed. Patient is alert, oriented x 3, equal unlabored respirations, skin warm/dry/pink. 14:00 Reassessment: Patient appears in no apparent distress at this time. Patient and/or eh3 family updated on plan of care and expected duration. Pain level reassessed. Patient is alert, oriented x 3, equal unlabored respirations, skin warm/dry/pink. Vital Signs: 11:49 BP 125 / 84; Pulse 105; Resp 19 S; Temp 98.2(TE); Pulse Ox 100% on R/A; Weight 47.63 kg aa5 (R); Height 4 ft. 11 in. (149.86 cm) (R); 12:00 BP 98 / 56; Pulse 53; Resp 18; Pulse Ox 100% on R/A; eh3 13:00 BP 100 / 61; Pulse 58; Resp 18; Pulse Ox 99% on R/A; eh3 14:00 BP 110 / 63; Pulse 58; Resp 18; Pulse Ox 99% on R/A; eh3 11:49 Body Mass Index 21.21 (47.63 kg, 149.86 cm) aa5 ED Course: 11:46 Patient arrived in ED. as 11:47 Marcelo Armstrong PA is PHCP. cp 11:47 Luis Eduardo Rich MD is Attending Physician. cp 11:49 Arm band placed on. aa5 11:50 Triage completed. aa5 11:58 Christina Huff, CASSANDRA is Primary Nurse. ap3 12:00 Patient has correct armband on for positive identification. Bed in low position. Call 3 light in reach. Side rails up X2. Adult w/ patient. Pulse ox on. NIBP on. Door closed. Noise minimized. Lights dimmed. Warm blanket given. 12:20 Urine Microscopic Only Sent. bc6 12:30 Abo/rh Typing Sent. bc6 12:30 Basic Metabolic Panel Sent. bc6 12:30 CBC with Diff Sent. bc6 12:31 Quantitative Hcg Sent. bc6 12:31 Magnesium Sent. bc6 12:31 Initial lab(s) drawn, by or, sent to lab. Urine collected: clean catch specimen. bc6 Inserted saline lock: 20 gauge in left antecubital area, using aseptic technique. 13:19 1St Trimest Single 1St Fetus In Process Unspecified. EDMS 14:36 No provider procedures requiring assistance completed. IV discontinued, intact, eh3 bleeding controlled, No redness/swelling at site. Pressure dressing applied. Administered Medications: 12:40 Drug: Zofran (Ondansetron) 4 mg Route: IVP; Site: left antecubital; eh3 14:12 Follow up: Response: Nausea is decreased eh3 12:40 Drug: Pepcid (famotidine) 20 mg Route: IVP; Site: left antecubital; eh3 14:13 Follow up: Response: No adverse reaction eh3 12:40 Drug: NS 0.9% 1000 ml Route: IV; Rate: 500 ml/hr; Site: left antecubital; eh3 14:00 Follow up: IV Status: Completed infusion; IV Intake: 1000ml eh3 14:25 Drug: Nitrofurantoin 100 mg Route: PO; eh3 14:35 Follow up: Response: Medication administered at discharge. eh3 Medication: 14:36 VIS not applicable for this client. eh3 Intake: 14:00 IV: 1000ml; Total: 1000ml. eh3 Outcome: 14:11 Discharge ordered by . cp 14:36 Discharged to home ambulatory, with significant other. eh3 14:36 Condition: stable 14:36 Discharge instructions given to patient, significant other, Instructed on discharge instructions, follow up and referral plans. medication usage, Demonstrated understanding of instructions, follow-up care, medications, Prescriptions given X 3. 14:36 Patient left the ED. eh3 Signatures: Dispatcher [employer] EDMS Ines Cruz Audri, RN RN aa5 Marcelo Armstrong PA PA cp Prokisch, Amanda, RN RN ap3 Maci Zepeda RN RN eh3 Candy Wilder 6 Corrections: (The following items were deleted from the chart) 11:51 11:49 Chief complaint: Patient states: vomiting since yesterday, reports 7 vomiting aa5 episodes yesterday and 6 times today. aa5
--- NOTE | 2022-09-14 14:11 | EDPHYS ---
Physician Documentation [facility] Name: Lin Everett Age: 21 yrs Sex: Female : 2000 Arrival Date: 09/14/2022 Time: 11:46 Bed 18 Private MD: ED Physician Luis Eduardo Rich HPI: 09/14 12:05 This 21 yrs old Female presents to ER via Ambulatory with complaints of Vomiting. cp 12:05 The patient presents to the emergency department with nausea and vomiting, that started cp yesterday, and is intermittent, described as bilious. 12:05 The estimated gestational age is 11 weeks. course: care: at a cp clinic, Leakage of Fluid: none appreciated, Ultrasound: the patient had an ultrasound. Associated signs and symptoms: Pertinent positives: abdominal pain, Pertinent negatives: chest pain, diarrhea, fever, ruptured membranes, vaginal bleeding, vaginal discharge. 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 - Social history:: Smoking status: Patient reports the use of cigarette tobacco products, smokes one-half pack cigarettes per day. ROS: 12:10 Constitutional: Positive for poor PO intake, Negative for body aches, chills, fever. cp 12:10 Eyes: Negative for injury, pain, redness, and discharge. cp 12:10 Respiratory: Negative for cough, shortness of breath, wheezing. 12:10 Abdomen/GI: Positive for abdominal pain, nausea, vomiting, of the epigastric area, right lower quadrant and left lower quadrant, Negative for diarrhea, constipation. 12:10 Back: Negative for pain at rest, pain with movement. cp 12:10 : Negative for urinary symptoms, vaginal bleeding, vaginal discharge. 12:10 Neuro: Negative for altered mental status, dizziness, headache, weakness. 12:10 All other systems are negative. Exam: 12:15 Constitutional: The patient appears in no acute distress, alert, awake, comfortable, cp non-toxic, well developed, well nourished. 12:15 Head/Face: Normocephalic, atraumatic. cp 12:15 Eyes: Periorbital structures: appear normal, Conjunctiva: normal, no exudate, no injection, Sclera: no appreciated abnormality, Lids and lashes: appear normal, bilaterally. 12:15 ENT: External ear(s): are unremarkable, Nose: is normal, Mouth: Lips: moist, Oral mucosa: pink and intact, moist, Posterior pharynx: is normal, airway is patent, no erythema, no exudate. 12:15 Chest/axilla: Inspection: normal. 12:15 Cardiovascular: Rate: tachycardic, Rhythm: regular. 12:15 Respiratory: the patient does not display signs of respiratory distress, Respirations: normal, no use of accessory muscles, no retractions, labored breathing, is not present, Breath sounds: are clear throughout, no decreased breath sounds, no stridor, no wheezing. 12:15 Abdomen/GI: Inspection: abdomen appears normal, Bowel sounds: active, all quadrants, Palpation: soft, in all quadrants, mild abdominal tenderness, in the epigastric area, right lower quadrant and left lower quadrant, rebound tenderness, is not appreciated, involuntary guarding, is not appreciated. 12:15 Back: pain, is absent, ROM is normal. 12:15 Neuro: Orientation: to person, place \T\ time. Mentation: is normal, Motor: moves all fours, strength is normal, Sensation: is normal. Vital Signs: 11:49 BP 125 / 84; Pulse 105; Resp 19 S; Temp 98.2(TE); Pulse Ox 100% on R/A; Weight 47.63 kg aa5 (R); Height 4 ft. 11 in. (149.86 cm) (R); 12:00 BP 98 / 56; Pulse 53; Resp 18; Pulse Ox 100% on R/A; eh3 13:00 BP 100 / 61; Pulse 58; Resp 18; Pulse Ox 99% on R/A; eh3 14:00 BP 110 / 63; Pulse 58; Resp 18; Pulse Ox 99% on R/A; eh3 11:49 Body Mass Index 21.21 (47.63 kg, 149.86 cm) aa5 MDM: 11:56 Patient medically screened. cp 13:00 Differential diagnosis: volume depletion, uti, miscarriage, electrolyte abnormality, cp appendicitis, cholecystitis. 14:11 Data reviewed: vital signs, nurses notes, lab test result(s), radiologic studies, cp ultrasound. 14:11 Consideration of Admission/Observation Escalation of care including cp admission/observation considered. I considered the following discharge prescriptions or medication management in the emergency department Medications were administered in the Emergency Department. See MAR. Test considered but Not performed: CT: abdomen/pelvis. Counseling: I had a detailed discussion with the patient and/or guardian regarding: the historical points, exam findings, and any diagnostic results supporting the discharge/admit diagnosis, lab results, radiology results, the need for outpatient follow up, an OB/Gyne specialist, to return to the emergency department if symptoms worsen or persist or if there are any questions or concerns that arise at home. Response to treatment: the patient's symptoms have markedly improved after treatment, and as a result, I will discharge patient. 09/14 11:57 Order name: Urine Microscopic Only; Complete Time: 12:49 09/14 12:50 Interpretation: Normal except: UBACT >50. 09/14 12:13 Order name: Abo/rh Typing; Complete Time: 13:38 09/14 12:13 Order name: Basic Metabolic Panel; Complete Time: 13:38 09/14 13:39 Interpretation: Normal except: ANION GAP 15.6. 09/14 12:13 Order name: CBC with Diff; Complete Time: 13:38 09/14 13:39 Interpretation: Normal except: ANIL% 79.2; LYM% 13.9; NEUT A 8.6. 09/14 12:13 Order name: Quantitative Hcg; Complete Time: 13:38 09/14 13:39 Interpretation: Reviewed. 09/14 12:14 Order name: Magnesium; Complete Time: 13:38 09/14 12:18 Order name: Urine Dipstick-Ancillary; Complete Time: 12:49 EDMS 09/14 12:50 Interpretation: Normal except: UKET 2+; UBLD Trace-lysed; UPROT 2+. 09/14 12:57 Order name: 1St Trimest Single 1St Fetus; Complete Time: 13:48 EDMS 09/14 13:48 Interpretation: Report reviewed. 09/14 12:58 Order name: Urine --Ancillary (enter results); Complete Time: 13:38 kj1 09/14 11:57 Order name: Urine Dipstick-Ancillary (obtain specimen); Complete Time: 12:20 cp 09/14 11:57 Order name: Urine Test (obtain specimen); Complete Time: 12:20 cp 09/14 12:13 Order name: IV Saline Lock; Complete Time: 12:30 cp 09/14 12:13 Order name: Labs collected and sent; Complete Time: 12:30 cp 09/14 12:13 Order name: NPO; Complete Time: 12:30 cp 09/14 13:49 Order name: PO challenge; Complete Time: 14:12 cp Administered Medications: 12:40 Drug: Zofran (Ondansetron) 4 mg Route: IVP; Site: left antecubital; 3 14:12 Follow up: Response: Nausea is decreased eh3 12:40 Drug: Pepcid (famotidine) 20 mg Route: IVP; Site: left antecubital; eh3 14:13 Follow up: Response: No adverse reaction 3 12:40 Drug: NS 0.9% 1000 ml Route: IV; Rate: 500 ml/hr; Site: left antecubital; eh3 14:00 Follow up: IV Status: Completed infusion; IV Intake: 1000ml 3 14:25 Drug: Nitrofurantoin 100 mg Route: PO; eh3 14:35 Follow up: Response: Medication administered at discharge. 3 Disposition: 14:47 I reviewed the patient's care provided by the Advanced Practice Provider and agree with jr11 the diagnosis and treatment plan. Disposition Summary: 09/14/22 14:11 Discharge Ordered Location: Home cp Problem: new cp Symptoms: have improved cp Condition: Stable cp Diagnosis - Other specified related conditions, first trimester cp - Nausea with vomiting, unspecified cp - UTI/ Urinary tract infection, site not specified cp Followup: cp - With: Private Physician - When: 1 - 2 days - Reason: Worsening of condition Discharge Instructions: - Discharge Summary Sheet cp - Abdominal Pain During cp - Nausea and Vomiting, Adult cp - and Urinary Tract Infection cp Forms: - Medication Reconciliation Form cp - Thank You Letter cp - Antibiotic Education cp - Prescription Opioid Use cp Prescriptions: - Pepcid 20 mg Oral Tablet - take 1 tablet by ORAL route every 12 hours for 10 days; 20 tablet; Refills: 0, cp Product Selection Permitted - Zofran 4 mg Oral Tablet - take 1 tablet by ORAL route every 12 hours As needed; 20 tablet; Refills: 0, cp Product Selection Permitted - Macrobid 100 mg Oral Capsule - take 1 capsule by ORAL route every 12 hours for 7 days; 14 capsule; Refills: 0, cp Product Selection Permitted Signatures: Dispatcher [employer] Gaby Hernández RN RN aa5 Marcelo Armstrong PA PA Luis Eduardo Woods MD MD [id number] Maci Zepeda RN RN eh3 Corrections: (The following items were deleted from the chart) 12:57 12:51 [employer]+[email or web address] ordered. REGINALDWA REGINALDWA
[2022-09-14] MEDS ORDERED: NITROFURAN MACRO 100 MG CAP PO ONE (14:28)
[2022-09-14 18:23] VITALS: BP 110/63; O2SAT 99
== END 2022-09-14 14:36 | disposition home or self-care (01) ==
LOC: ER 11:39
DX: O23.41 Unspecified infection of urinary tract in pregnancy, first trimester (principal); N39.0 Urinary tract infection, site not specified; O99.331 Smoking (tobacco) complicating pregnancy, first trimester; F17.210 Nicotine dependence, cigarettes, uncomplicated; Z3A.11 11 weeks gestation of pregnancy; Z88.8 Allergy status to other drugs, medicaments and biological substances
CPT/HCPCS: 96361; 85025; 80048; 36415; 86900; 83735; 81025; 86901; 84702; 76801; 96375; 96374; 99284; J7030; J2405; 81003; 81015